=== PATIENT | male | born 1980 ===

== ENCOUNTER 2020-09-11 18:52 | Emergency (ER) | payer SELFPAY ==
[~2020-09-11] VITALS: Ht 162.6 cm; Wt 63.4 kg
[2020-09-11 18:55] VITALS: BP 144/93
[2020-09-11] MEDS ORDERED: OXYcodone/APAP 5/325MG TABLET PO ONE (19:30)
[2020-09-11] MEDS ORDERED: METHOCARBAMOL 750 MG TABLET PO ONE (19:30)
[2020-09-11] MEDS ORDERED: METHOCARBAMOL 750 MG TABLET ONE (19:42)
[2020-09-11] MEDS ORDERED: OXYcodone/APAP 5/325MG TABLET ONE (19:43)
--- NOTE | 2020-09-11 20:21 | NUR ---
PT MEDICATED PER ORDER. PT EDUCATED THAT THIS RN NEEDS TO MONITOR PT FOR 30 MINUTES POST MEDICATION. UPON RETURNING TO THE ROOM PT IS GONE
== END 2020-09-11 20:23 | disposition left against medical advice (07) ==
LOC: ED 19:22
DX: S29.012A Strain of muscle and tendon of back wall of thorax, initial encounter (principal); X50.0XXA Overexertion from strenuous movement or load, initial encounter; Y93.89 Activity, other specified; Y92.69 Other specified industrial and construction area as the place of occurrence of the external cause; Y99.0 Civilian activity done for income or pay
CPT/HCPCS: 99283